=== PATIENT | male | born 1940 | race Caucasian/White ===

== ENCOUNTER 2016-10-09 19:04 | Emergency (ER) | payer MEDICARE, OTHER ==
[~2016-10-09] VITALS: Ht 175.3 cm; Wt 101.1 kg
[~2016-10-09 19:04] MED LIST: AMBIEN5 MG PO; ATROVENT0.5 MG/2.5 INH; BISAC-EVAC10 MG RECTAL; BROVANA15 MCG/2 M INH; BYSTOLIC10 MG PO; CALCIUM CARBON500 MG PO; CAVILON DURABLE92 G1 TOP; CELEXA20 MG PO; ELIQUIS2.5 MG PO; ELIQUIS5 MG PO; FLEET ENEMA133 M1 RECTAL; FOLIC ACID1 MG PO; GLUCAGEN1 MG/1 ML SUBCUT; IPRAT-ALBUT 0.5-3 ML INH; KEFLEX500 MG PO; KLOR-CON M1010 MEQ PO; LANTUS100 UNIT/1 SUBCUT; LASIX80 MG PO; LEVAQUIN250 MG PO; LEVEMIR FL100 UNIT/1 SUBCUT; MAGNESIUM OXID400 MG PO; MILK OF MAGNESI30 ML PO; MIRALAX17 GM PO; MUCINEX600 MG PO; MULTI COMPLETE1 EACH PO; NORVASC5 MG PO; NYSTATIN100000 UNI PO; PREDNISONE20 MG PO; PREDNISONE5 MG PO; PROTONIX40 MG PO; PULMICORT0.5 MG/2 M INH; ROBITUSSIN DM10 ML PO; SILVADENE 1%85 GM TOP; SINGULAIR10 MG PO; STOMAHESIVE P28.3 GM TOP; THEO-24200 MG PO; THEOCHRON300 MG PO; TYLENOL325 MG PO; ULORIC40 MG PO; VITAMIN B-121000 MCG PO; ZAROXOLYN2.5 MG PO
== END 2016-10-09 20:30 | disposition short-term general hospital (02) ==
LOC: ER 19:04
DX: R41.0 Disorientation, unspecified (principal); N18.9 Chronic kidney disease, unspecified; Z99.2 Dependence on renal dialysis; Z99.11 Dependence on respirator [ventilator] status